=== PATIENT | male | born 1995 | race African-American/Black ===

== ENCOUNTER 2019-02-03 10:00 | Observation (INO) | payer OTHER ==
[2019-02-03] VITALS (10 sets, daily range): BP systolic 133–156; BP diastolic 62–78; PULSE 39–52; TEMP 97.7–98.6
[~2019-02-03] VITALS: Ht 177.8 cm; Wt 97.5 kg
--- NOTE | 2019-02-03 10:00 | NUR ---
Patient arrived from [facility] via EMS transport. Patient is alert and oriented, answers questions appropriately. Patient appears comfortable and states that his pain is intermittent. Patient prepped for EGD per orders.
--- NOTE | 2019-02-03 12:00 | NUR ---
Patient back from EGD. Patient is sleepy but rouses to name. Post op checks initiated. No complaints of pain or nausea, will continue to monitor.
[2019-02-03] MEDS ORDERED: BIAXIN 500MG T500 MG PO (15:49)
[2019-02-03] MEDS ORDERED: PROTONIX 40MG T40 MG PO (15:50)
[2019-02-03] MEDS ORDERED: FLAGYL500 MG PO (15:50)
--- NOTE | 2019-02-03 18:33 | NUR ---
Patient has grown increasingly nauseous and reports that he is unable to keep down water. Administered PRN zofran and reglan per orders. PO meds being held until nausea resolves. Reported patient status to hospitalist, states he will reevaluate if reglan dose is ineffective. Patient denies needs at this time, call light within reach.
--- NOTE | 2019-02-03 19:30 | NUR ---
PT RESTING QUIETLY IN BED. NO c/o NAUSEA. HAVING VERY LITTLE IF ANY PAIN.
--- NOTE | 2019-02-03 20:00 | NUR ---
AFTER FAMILY CAME BACK, PT STARTED c/o NAUSEA. ZOFRAN ADMIN.
--- NOTE | 2019-02-03 20:30 | NUR ---
HAVE TALKED TO PT ABOUT DISCHARGE. PT HAS HELD DOWN HIS EVENING MEDICATIONS. PT NOW c/o ABDOMINAL PAIN SINCE FAMILY CAME BACK.
--- NOTE | 2019-02-03 21:30 | NUR ---
PT NOW WRITHING AROUND AND MOANING, c/o ABDOMINAL PAIN. PT WON'T GIVE AN ANSWER WHEN ASKED IF HE WANTS TO STAY HERE OR BE DISCHARGED THERE ARE DISCHARGE ORDERS. HOSPITALIST IVET NOTIFIED OF SITUATION.
--- NOTE | 2019-02-03 22:35 | NUR ---
AFTER TALKING WITH HOSPITALIST, PT AGREED TO LEAVING BUT FIRST GETTING DOSE OF FENTANYL AND ZOFRAN WHICH WAS ADMIN. BEFORE BEING DISCHARGED. PT CONTINUED TO YELL AND WRITHE ON THE BED. PT STATED HE WANTED TO DISCHARGE SO HE COULD GO BACK TO [facility]. PT GIVEN D.C. INSTRUCTIONS, MED AND DIET INFORMATION. I.V. WAS DISCONTINUED. PT WAS ESCORTED VIA WHEELCHAIR WITH FAMILY UPON DISCHARGE.
== END 2019-02-03 22:35 | disposition home or self-care (01) ==
LOC: SURG 10:00 → MEDICAL 10:06 → SURG 22:35
PROVIDERS: ADMIT Hospitalist
DX: R10.13 Epigastric pain (principal); R11.2 Nausea with vomiting, unspecified; F17.210 Nicotine dependence, cigarettes, uncomplicated; Z88.1 Allergy status to other antibiotic agents
CPT/HCPCS: G0378; G0379; J2250; J2405; J2765; J3010